=== PATIENT | female | born 1975 | race Caucasian/White ===

== ENCOUNTER 2017-01-02 17:22 | Emergency (ER) | payer OTHER ==
[~2017-01-02] VITALS: Ht 170.2 cm; Wt 144.4 kg
[~2017-01-02 17:22] MED LIST: Colace PO; FLUOXETINE HCL20 MG; Hyzaar 100-12.5 PO; LOSARTAN-HCTZ1 EACH; Lovenox SC; Milk Of Magnesia,MOM PO; Motrin PO; NAPROSYN500 MG PO; NORCO 5/3251 TABLET PO; PROzac PO; Percocet 5/325,Endoc PO; Proventil,Ventolin H IH
[2017-01-02 20:25] VITALS: BP 180/98
== END 2017-01-02 21:12 | disposition home or self-care (01) ==
LOC: EME 17:22
DX: M54.32 Sciatica, left side (principal)
CPT/HCPCS: 99281; 99283; J1100; J1885

== ENCOUNTER 2017-01-10 10:19 | Emergency (ER) | payer OTHER ==
[~2017-01-10] VITALS: Ht 170.2 cm; Wt 142.3 kg
[2017-01-10 13:32] LABS: BASOPHIL COUNT 0.1 K/uL (0-0.1); EOSINOPHIL (%) 1.3 % (0-5); EOSINOPHIL COUNT 0.1 K/uL (0-0.3); HEMATOCRIT 44.2 % (36.0-46.0); IMMATURE GRANULOCYTE (%) 0.3 % (0.0-0.7); INSTRUMENT ABS NEUTROPHIL CT 5.5 K/uL; LYMPHOCYTE COUNT 3.9 K/uL (1.0-2.8); MCH 28.2 PG (29.0-34.0); MCHC 33.7 G/DL (30.0-36.0); MCV 83.7 FL (83-99); MEAN PLAT.VOLUME 10.3 uM^3 (9.5-12.4); MONOCYTE (%) 4.5 % (3-12); MONOCYTE COUNT 0.5 K/uL (0-0.8); NEUTROPHIL (%) 54.7 % (45-76); NEUTROPHIL COUNT 5.5 K/uL (1.8-6.4); PLATELET COUNT 191 K/uL (156-360); RBC DIS.WIDTH-CV 11.8 % (11.8-14.6); RBC DIS.WIDTH-SD 35.8 % (39-53); RED BLOOD COUNT 5.28 M/uL (3.80-5.20)
[2017-01-10 13:43] LABS: CHLORIDE 100 mEq/L (99-109); SODIUM 140 mEq/L (136-147)
[2017-01-10 13:44] LABS: GLUCOSE 108 mg/dL (70-99)
[2017-01-10 13:46] LABS: ANION GAP 13 MEQ/L (2-14)
[2017-01-10 13:48] LABS: GFR ESTIMATE (CALCULATED) > 59 mL/min/
[2017-01-10 13:49] LABS: UREA NITROGEN (BUN) 9 mg/dL (9-23)
[2017-01-10] MEDS ORDERED: PERCOCET 5/31 TABLET PO (19:40)
[2017-01-10 20:13] VITALS: BP 115/77
== END 2017-01-10 20:13 | disposition home or self-care (01) ==
LOC: EME 10:19
PROVIDERS: Emergency Medicine
DX: M51.17 Intervertebral disc disorders with radiculopathy, lumbosacral region (principal); R20.2 Paresthesia of skin; J45.909 Unspecified asthma, uncomplicated; I10 Essential (primary) hypertension
CPT/HCPCS: 72158; 80048; 85025; 99281; 99284; J2270